=== PATIENT | female | born 1950 | race Caucasian/White ===

== ENCOUNTER 2017-06-12 18:51 | Emergency (ER) | payer MEDICARE, BC ==
--- NOTE | 2017-06-12 19:04 | EDM.PDOC ---
[id number] 4d CHEST PAINS, [id number] Time Seen by Provider: 06/12/17 19:19 Source of Information: Reports: Patient History Limitations: Reports: No Limitations - History of Present Illness INITIAL COMMENTS - FREE TEXT/NARRATIVE: c/o pain below both clavicles this am worse with deep breath 5/10 lessened some during day never completley gone, tonight 530 while fixing supper worse left chest up neck, continued pain with inspiration no SOB, no nausea or sweating. Hx SVT, controlled x 4 years. hypothyroid last level december, fairly stable, small increase in dose yearly. Onset: Today, Sudden Duration: Hour(s):, Getting Worse Location: Reports: Chest Quality: Reports: Sharp Severity: Moderate Worsens with: Reports: Breathing Associated Symptoms: Reports: Chest Pain Treatments SLAB GRINDER: Reports: Acetaminophen Left Chest Pain Score (Numeric/FACES): 7 - Related Data Allergies Allergy/AdvReac Type Severity Reaction Status Date / Time No Known Allergies Allergy Verified 06/12/17 19:15 Home Meds: Home Meds Aspirin 81 mg PO DAILY 06/12/17 [History] Digoxin 50 mcg PO DAILY 06/12/17 [History] Levothyroxine [Synthroid] 88 mcg PO DAILY 06/12/17 [History] Metoprolol Tartrate 25 mg PO DAILY 06/12/17 [History] Nicotine [Nicoderm CQ] 1 patch TOP DAILY 06/12/17 [History] Rosuvastatin [Crestor] 10 mg PO DAILY 06/12/17 [History] ED ROS GENERAL - Review of Systems Review Of Systems: See Below Constitutional: Reports: No Symptoms HEENT: Reports: No Symptoms Respiratory: Reports: Pleuritic Chest Pain Cardiovascular: Reports: Chest Pain. Denies: Edema, Lightheadedness, Orthopnea Endocrine: Reports: No Symptoms GI/Abdominal: Reports: No Symptoms : Reports: No Symptoms Musculoskeletal: Reports: No Symptoms Skin: Reports: No Symptoms Neurological: Reports: No Symptoms ED EXAM, GENERAL - Physical Exam Exam: See Below Exam Limited By: No Limitations General Appearance: Alert, Mild Distress. No: Anxious Eye Exam: Bilateral Eye: EOMI Ears: Normal External Exam, Normal TMs Nose: Normal Inspection Throat/Mouth: Normal Inspection, Normal Voice Neck: Normal Inspection, Full Range of Motion. No: Lymphadenopathy (L), Lymphadenopathy (R), Thyromegaly Respiratory/Chest: No Respiratory Distress, Lungs Clear, Normal Breath Sounds Cardiovascular: Normal Peripheral Pulses, Regular Rate, Rhythm, No Edema, No JVD GI/Abdominal: Normal Bowel Sounds, Soft, Non-Tender (Female) Exam: Normal External Exam Extremities: Normal Inspection, Normal Range of Motion Neurological: Alert, Oriented, Normal Cognition, Normal Gait, No Motor/Sensory Deficits Psychiatric: Normal Affect Skin Exam: Warm, Dry, Intact, Normal Color, No Rash Course - Vital Signs Last Recorded V/S: Last Vital Signs Temp 97.4 F 06/12/17 20:48 Pulse 68 06/12/17 20:48 Resp 17 06/12/17 20:48 BP 108/53 L 06/12/17 20:48 Pulse Ox 99 06/12/17 20:48 - Orders/Labs/Meds Labs: Laboratory Tests 06/12/17 06/12/17 06/12/17 Range/Units 19:03 19:03 19:03 WBC 10.7 H (5.0-10.0) 10^3/uL RBC 4.13 L (4.2-5.4) 10^6/uL Hgb 12.5 (12.0-16.0) g/dL Hct 37.6 (37.0-47.0) % MCV 91.0 (80-100) fL MCH 30.3 (27.0-34.0) pg MCHC 33.2 (33.0-35.0) g/dL Plt Count 272 (150-450) 10^3/uL Neut % (Auto) 69.7 (42.2-75.2) % Lymph % (Auto) 18.5 L (20.5-50.1) % [place] % (Auto) 10.4 H (2-8) % Eos % (Auto) 1.2 (1.0-3.0) % Baso % (Auto) 0.2 (0.0-1.0) % PT 9.5 (9.0-12.0) SEC INR 0.9 (0.9-1.2) D-Dimer, Quantitative (0-400) ng/mL Sodium 139 (135-145) mmol/L Potassium 4.1 (3.6-5.0) mmol/L Chloride 103 (101-111) mmol/L Carbon Dioxide 23.0 (21.0-31.0) mmol/L Anion Gap 17.1 BUN 17 (7-18) mg/dL Creatinine 0.8 (0.6-1.3) mg/dL Est Cr Clr Drug Dosing 60.54 mL/min Estimated GFR (MDRD) > 60 BUN/Creatinine Ratio 21.25 Glucose 115 H (74-105) mg/dL Calcium 9.3 (8.4-10.2) mg/dl Total Bilirubin 0.5 (0.2-1.0) mg/dL AST 21 (10-42) IU/L ALT 18 (10-60) IU/L Alkaline Phosphatase 76 (42-121) IU/L CK-MB (CK-2) (0.4-4.7) ng/mL Troponin I < 0.02 (0.00-0.02) ng/ml Total Protein 7.4 (6.7-8.2) g/dl Albumin 4.1 (3.2-5.5) g/dl Globulin 3.3 Albumin/Globulin Ratio 1.24 Amylase 43 (28-100) U/L Lipase 22 (22-51) U/L TSH, Ultra Sensitive (0.35-7.0) uIu/mL Urine Color (YELLOW) Urine Appearance (CLEAR) Urine pH (5.0-9.0) Ur Specific [place] (1.005-1.030) Urine Protein (NEGATIVE) Urine Glucose (UA) (NEGATIVE) Urine Ketones (NEGATIVE) Urine Occult Blood (NEGATIVE) Urine Nitrite (NEGATIVE) Urine Bilirubin (NEGATIVE) Urine Urobilinogen (0.2-1.0) mg/dL Ur Leukocyte Esterase (NEGATIVE) Urine RBC /HPF Urine WBC (0-5/HPF) /HPF Ur Epithelial Cells /HPF Urine Bacteria (0-FEW/HPF) /HPF Urine Mucus /LPF Digoxin (0-2.5) ng/ml 06/12/17 06/12/17 06/12/17 Range/Units 19:03 19:03 19:03 WBC (5.0-10.0) 10^3/uL RBC (4.2-5.4) 10^6/uL Hgb (12.0-16.0) g/dL Hct (37.0-47.0) % MCV (80-100) fL MCH (27.0-34.0) pg MCHC (33.0-35.0) g/dL Plt Count (150-450) 10^3/uL Neut % (Auto) (42.2-75.2) % Lymph % (Auto) (20.5-50.1) % [place] % (Auto) (2-8) % Eos % (Auto) (1.0-3.0) % Baso % (Auto) (0.0-1.0) % PT (9.0-12.0) SEC INR (0.9-1.2) D-Dimer, Quantitative 1170 H (0-400) ng/mL Sodium (135-145) mmol/L Potassium (3.6-5.0) mmol/L Chloride (101-111) mmol/L Carbon Dioxide (21.0-31.0) mmol/L Anion Gap BUN (7-18) mg/dL Creatinine (0.6-1.3) mg/dL Est Cr Clr Drug Dosing mL/min Estimated GFR (MDRD) BUN/Creatinine Ratio Glucose (74-105) mg/dL Calcium (8.4-10.2) mg/dl Total Bilirubin (0.2-1.0) mg/dL AST (10-42) IU/L ALT (10-60) IU/L Alkaline Phosphatase (42-121) IU/L CK-MB (CK-2) 1.00 (0.4-4.7) ng/mL Troponin I (0.00-0.02) ng/ml Total Protein (6.7-8.2) g/dl Albumin (3.2-5.5) g/dl Globulin Albumin/Globulin Ratio Amylase (28-100) U/L Lipase (22-51) U/L TSH, Ultra Sensitive (0.35-7.0) uIu/mL Urine Color (YELLOW) Urine Appearance (CLEAR) Urine pH (5.0-9.0) Ur Specific [place] (1.005-1.030) Urine Protein (NEGATIVE) Urine Glucose (UA) (NEGATIVE) Urine Ketones (NEGATIVE) Urine Occult Blood (NEGATIVE) Urine Nitrite (NEGATIVE) Urine Bilirubin (NEGATIVE) Urine Urobilinogen (0.2-1.0) mg/dL Ur Leukocyte Esterase (NEGATIVE) Urine RBC /HPF Urine WBC (0-5/HPF) /HPF Ur Epithelial Cells /HPF Urine Bacteria (0-FEW/HPF) /HPF Urine Mucus /LPF Digoxin 1.0 (0-2.5) ng/ml 06/12/17 06/12/17 Range/Units 19:03 19:52 WBC (5.0-10.0) 10^3/uL RBC (4.2-5.4) 10^6/uL Hgb (12.0-16.0) g/dL Hct (37.0-47.0) % MCV (80-100) fL MCH (27.0-34.0) pg MCHC (33.0-35.0) g/dL Plt Count (150-450) 10^3/uL Neut % (Auto) (42.2-75.2) % Lymph % (Auto) (20.5-50.1) % [place] % (Auto) (2-8) % Eos % (Auto) (1.0-3.0) % Baso % (Auto) (0.0-1.0) % PT (9.0-12.0) SEC INR (0.9-1.2) D-Dimer, Quantitative (0-400) ng/mL Sodium (135-145) mmol/L Potassium (3.6-5.0) mmol/L Chloride (101-111) mmol/L Carbon Dioxide (21.0-31.0) mmol/L Anion Gap BUN (7-18) mg/dL Creatinine (0.6-1.3) mg/dL Est Cr Clr Drug Dosing mL/min Estimated GFR (MDRD) BUN/Creatinine Ratio Glucose (74-105) mg/dL Calcium (8.4-10.2) mg/dl Total Bilirubin (0.2-1.0) mg/dL AST (10-42) IU/L ALT (10-60) IU/L Alkaline Phosphatase (42-121) IU/L CK-MB (CK-2) (0.4-4.7) ng/mL Troponin I (0.00-0.02) ng/ml Total Protein (6.7-8.2) g/dl Albumin (3.2-5.5) g/dl Globulin Albumin/Globulin Ratio Amylase (28-100) U/L Lipase (22-51) U/L TSH, Ultra Sensitive 1.24 (0.35-7.0) uIu/mL Urine Color Yellow (YELLOW) Urine Appearance Slightly cloudy (CLEAR) Urine pH 5.5 (5.0-9.0) Ur Specific [place] 1.010 (1.005-1.030) Urine Protein Negative (NEGATIVE) Urine Glucose (UA) Negative (NEGATIVE) Urine Ketones Negative (NEGATIVE) Urine Occult Blood Trace-lysed H (NEGATIVE) Urine Nitrite Negative (NEGATIVE) Urine Bilirubin Negative (NEGATIVE) Urine Urobilinogen 0.2 (0.2-1.0) mg/dL Ur Leukocyte Esterase Trace H (NEGATIVE) Urine RBC 0-5 /HPF Urine WBC 0-5 (0-5/HPF) /HPF Ur Epithelial Cells Few /HPF Urine Bacteria Few (0-FEW/HPF) /HPF Urine Mucus Rare /LPF Digoxin (0-2.5) ng/ml Meds: Medications Discontinued Medications Generic Name Dose Route Start Last Admin Trade Name Freq PRN Reason Stop Dose Admin Aspirin 324 mg 06/12/17 19:25 06/12/17 19:31 Aspirin PO 06/12/17 19:26 324 mg ONETIME ONE Administration Sodium Chloride 1,000 mls @ 999 mls/hr 06/12/17 20:45 06/12/17 20:34 Normal Saline IV 06/16/17 20:38 999 mls/hr ASDIRECTED SHIRA Administration Iopamidol 100 ml 06/12/17 19:57 06/12/17 20:20 Isovue-370 (76%) IVPUSH 06/12/17 19:58 65 ml ONETIME ONE Administration Nitroglycerin 0.4 mg 06/12/17 19:17 06/12/17 19:22 Nitrostat SL 06/12/17 19:18 0.4 mg ONETIME ONE Administration Nitroglycerin 0.4 mg 06/12/17 19:32 06/12/17 19:33 Nitrostat SL 06/12/17 19:33 0.4 mg ONETIME ONE Administration - Radiology Interpretation Free Text/Narrative:: Chest PE negative for PE, small left pleural effusion CXR atelectasis, small left pleural effusion - Re-Assessments/Exams Free Text/Narrative Re-Assessment/Exam: 06/12/17 19:38 pain 7 at presentation 5 at exam, decrease to 3 after one nitro less in neck and shoulder VS remain stable following nitro. Systolic BP 115. 1935 Complete relief of chest pain and pain with inspiration following Nitro 06/12/17 20:[address] Zia Burnette hospitalist, accepting of patient following Chest PE study and results for further evaluation by cardiology. No recommendation for initiating heparin at this time. 06/19/17 05:27 Departure - Departure Time of Disposition: 22:35 Disposition: DC/Tfer to Acute Hospital 02 Reason for Transfer *Q: Other Condition: Undetermined Clinical Impression: Nonspecific chest pain Referrals: PCP,None [Primary Care Provider] - Forms: ED Department Discharge
[2017-06-12] MEDS ORDERED: Nitroglycerin 0.4 MG Tab.SL SL ONE ×2 (19:17→19:32)
[2017-06-12] MEDS ORDERED: Aspirin 81 MG Tab.Chew PO ONE (19:25)
[2017-06-12 19:31] LABS: CHLORIDE,CL 103 mmol/L (101-111); SODIUM,NA 139 mmol/L (135-145)
[2017-06-12] MEDS ORDERED: Iopamidol 755 Mg/ML 100 ML Bottle IVPUSH ONE (19:57)
[2017-06-12] MEDS ORDERED: Sodium Chloride 0.9% 1,000 ML IV SCH (20:45)
[2017-06-12 20:48] VITALS: BP 108/53
--- NOTE | 2017-06-18 19:50 | EKG ---
06/12/2017 - CHRISSIE MACHUCA - TIME: 6:54 p.m. EKG per my reading shows sinus rhythm with no acute ST changes. [facility] /[id number]
--- NOTE | 2017-06-19 11:00 | EKG ---
06/12/2017- CHRISSIE MACHUCA - EKG per my reading shows sinus rhythm with a rate of 64. This is from 06/12/2017 on 2100 hours. [facility] /[id number]
== END 2017-06-12 22:35 ==
LOC: DL.ED 18:51
DX: R07.9 Chest pain, unspecified (principal); Z79.899 Other long term (current) drug therapy; Z79.82 Long term (current) use of aspirin
CPT/HCPCS: 36415; 71010; 71260; 80053; 80162; 81001; 82150; 82553; 83690; 84443; 84484; 85025; 85379; 85610; 93005; 93010; 96365; 99285; A9270; J7030; Q9967; 99283

== ENCOUNTER 2017-11-20 14:09 | Emergency (ER) | payer MEDICARE, BC ==
[2017-11-20 14:32] VITALS: BP 141/72
--- NOTE | 2017-11-20 14:32 | EDM.PDOC ---
ED HPI GENERAL MEDICAL PROBLEM - General Chief Complaint: Respiratory Problem Stated Complaint: PAINS WHEN SHE BREATHS, [id number] Time Seen by Provider: 11/20/17 14:32 Source of Information: Reports: Patient, RN, RN Notes Reviewed History Limitations: Reports: No Limitations - History of Present Illness INITIAL COMMENTS - FREE TEXT/NARRATIVE: Patient sent from clinic by Kat Isabel due to shortness of breath and pleuritic chest pain worse today but present since June 2017. She has had fever since November 18. See by bottle packing machine cleaner last week but found nothing. Had cardiac work up in June 2017 which was negative. Had a cardiac cath in 2007. Today found to have elevated D-dimer greater than 5000 in clinic. Patient reports recurrent episodes of shortness of breath cough and chest pain that last about 5 days. She also c/o fevers for the last several days. These episodes used to occur less than once a month but now happen back to back. Location: Reports: Chest Quality: Reports: Ache, Other (shortness of breath.) Severity: Severe Improves with: Reports: None Worsens with: Reports: None Associated Symptoms: Reports: No Other Symptoms Chest Pain Score (Numeric/FACES): 6 - Related Data Allergies Allergy/AdvReac Type Severity Reaction Status Date / Time atorvastatin [From Lipitor] Allergy Abdominal Verified 11/20/17 14:33 Pain Home Meds: Home Meds Aspirin 81 mg PO DAILY 06/12/17 [History] Digoxin 25 mcg PO DAILY 06/12/17 [History] Levothyroxine [Synthroid] 0.1 mcg PO DAILY 06/12/17 [History] Metoprolol Tartrate 25 mg PO DAILY 06/12/17 [History] Rosuvastatin [Crestor] 10 mg PO DAILY 06/12/17 [History] Calcium Carbonate/Vitamin D3 [[place] 500+D] 1 tab PO DAILY 11/20/17 [History] Past Medical History HEENT History: Reports: Impaired Vision Cardiovascular History: Reports: CAD, High Cholesterol, Other (See Below) Other Cardiovascular History: SVT Respiratory History: Reports: COPD 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: Reports: Endocrine/Metabolic History: Reports: Hypothyroidism - Past Surgical History Cardiovascular Surgical History: Reports: Other (See Below) (angiogram) Social & Family History - Family History Cardiac: Reports: OR Other Cardiac Family History: mom had a heart attack - Tobacco Use Smoking Status *Q: Former Smoker Years of Tobacco use: 40 Packs/Tins Daily: 0.5 Used Tobacco, but Quit: Yes Month Tobacco Last Used: April - Caffeine Use Caffeine Use: Reports: Coffee Other Caffeine Use: 4 cups/day - Recreational Drug Use Recreational Drug Use: No - Living Situation & Occupation Living situation: Reports: , with Spouse Occupation: Retired ED ROS GENERAL - Review of Systems Review Of Systems: ROS reveals no pertinent complaints other than HPI. ED EXAM, GENERAL - Physical Exam Exam: See Below Exam Limited By: No Limitations General Appearance: Alert, WD/WN, No Apparent Distress Eye Exam: Bilateral Eye: Normal Inspection Ears: Normal External Exam, Hearing Grossly Normal Nose: Normal Inspection, Normal Mucosa, No Blood Throat/Mouth: Normal Inspection, Normal Lips, Normal Teeth, Normal Gums, Normal Oropharynx, Normal Voice, No Airway Compromise Head: Atraumatic, Normocephalic Neck: Normal Inspection, Supple, Non-Tender, Full Range of Motion Respiratory/Chest: No Respiratory Distress, No Accessory Muscle Use, Decreased Breath Sounds (in bilateral bases. ), Crackles, Rales Cardiovascular: Regular Rate, Rhythm, No Edema, Tachycardia GI/Abdominal: Normal Bowel Sounds, Soft, Non-Tender, No Distention, No Abnormal Bruit (Female) Exam: Deferred Rectal (Female) Exam: Deferred Back Exam: Normal Inspection, Full Range of Motion, NT Extremities: Normal Inspection, Normal Range of Motion, Non-Tender, Normal Capillary Refill, No Pedal Edema Neurological: Alert, Oriented, CN II-XII Intact, Normal Cognition, Normal Gait, No Motor/Sensory Deficits Psychiatric: Normal Mood Skin Exam: Warm, Dry, Intact, Normal Color, No Rash EKG INTERPRETATION EKG Date: 11/20/17 Time: 15:52 Rhythm: Other (sinus tachycardia) Rate (Beats/Min): 110 Orient: Normal P-Wave: Present QRS: Other (Small inferior Q waves.) ST-T: Other (T wave inversion in lead 3. T wave depression in lead 3 and V4. T wave flattening on V1 and V2.) QT: Normal Comparison: NA - No Prior EKG EKG Interpretation Comments: Possible anterior lateral ischemic changes. Course - Vital Signs Last Recorded V/S: Last Vital Signs Temp 37.3 C 11/20/17 14:25 Pulse 124 H 11/20/17 14:25 Resp 16 11/20/17 14:25 BP 141/72 H 11/20/17 14:25 Pulse Ox 95 11/20/17 14:25 - Orders/Labs/Meds Orders: Active Orders 24 hr Category Date Time Status EKG 12 Lead [EKG Documentation Completion] [] STAT Care 11/20/17 15:11 Active Peripheral IV Care [] . DIRECTED Care 11/20/17 14:54 Active CULTURE BLOOD [BC] Stat Lab 11/20/17 15:35 Received CULTURE BLOOD [BC] Stat Lab 11/20/17 15:40 Received Levofloxacin/Dextrose 5%-Water [Levaquin in D5W 750 MG/ Med 11/20/17 16:51 Active 150 ML] 750 mg Premix Bag 1 bag IV ONETIME Sodium Chloride 0.9% [Saline Flush] Med 11/20/17 14:54 Active 10 ml FLUSH ASDIRECTED PRN Blood Culture x2 Reflex Set [OM.PC] Stat Oth 11/20/17 15:12 Ordered Peripheral IV Insertion Adult [OM.PC] Stat Oth 11/20/17 14:54 Ordered Medication Orders Levofloxacin/Dextrose 750 mg/ (Premix) 150 mls @ 100 mls/hr IV ONETIME ONE Stop: 11/20/17 18:20 Last Admin: 11/20/17 16:55 Dose: 100 mls/hr Sodium Chloride (Saline Flush) 10 ml FLUSH ASDIRECTED PRN PRN Reason: Keep Vein Open Last Admin: 11/20/17 16:56 Dose: 10 ml Admin: 11/20/17 15:52 Dose: 10 ml Labs: Laboratory Tests 11/20/17 11/20/17 11/20/17 Range/Units 15:35 15:35 15:35 WBC 17.1 H (5.0-10.0) 10^3/uL RBC 3.77 L (4.2-5.4) 10^6/uL Hgb 10.9 L D (12.0-16.0) g/dL Hct 33.9 L (37.0-47.0) % MCV 89.9 (80-100) fL MCH 28.9 (27.0-34.0) pg MCHC 32.2 L (33.0-35.0) g/dL Plt Count 402 D (150-450) 10^3/uL Neut % (Auto) 82.1 H (42.2-75.2) % Lymph % (Auto) 8.5 L (20.5-50.1) % [place] % (Auto) 9.2 H (2-8) % Eos % (Auto) 0.1 L (1.0-3.0) % Baso % (Auto) 0.1 (0.0-1.0) % PT 10.6 (9.0-12.0) SEC INR 1.1 (0.9-1.2) APTT 29.7 (22.0-34.0) SEC Sodium 133 L (135-145) mmol/L Potassium 4.0 (3.6-5.0) mmol/L Chloride 98 L (101-111) mmol/L Carbon Dioxide 26.0 (21.0-31.0) mmol/L Anion Gap 13.0 BUN 11 (7-18) mg/dL Creatinine 0.8 (0.6-1.3) mg/dL Est Cr Clr Drug Dosing 55.45 mL/min Estimated GFR (MDRD) > 60 BUN/Creatinine Ratio 13.75 Glucose 114 H (74-105) mg/dL Lactic Acid (0.5-2.2) mmol/L Calcium 8.4 (8.4-10.2) mg/dl Total Bilirubin 0.1 L (0.2-1.0) mg/dL AST 19 (10-42) IU/L ALT 18 (10-60) IU/L Alkaline Phosphatase 86 (42-121) IU/L Troponin I < 0.02 (0.00-0.02) ng/ml B-Natriuretic Peptide (0-100) pg/ml Total Protein 7.8 (6.7-8.2) g/dl Albumin 3.3 (3.2-5.5) g/dl Globulin 4.5 Albumin/Globulin Ratio 0.73 Urine Color (YELLOW) Urine Appearance (CLEAR) Urine pH (5.0-9.0) Ur Specific [place] (1.005-1.030) Urine Protein (NEGATIVE) Urine Glucose (UA) (NEGATIVE) Urine Ketones (NEGATIVE) Urine Occult Blood (NEGATIVE) Urine Nitrite (NEGATIVE) Urine Bilirubin (NEGATIVE) Urine Urobilinogen (0.2-1.0) mg/dL Ur Leukocyte Esterase (NEGATIVE) Urine RBC /HPF Urine WBC (0-5/HPF) /HPF Ur Epithelial Cells /HPF Urine Bacteria (0-FEW/HPF) /HPF Digoxin (0-2.5) ng/ml 11/20/17 11/20/17 11/20/17 Range/Units 15:35 15:35 15:35 WBC (5.0-10.0) 10^3/uL RBC (4.2-5.4) 10^6/uL Hgb (12.0-16.0) g/dL Hct (37.0-47.0) % MCV (80-100) fL MCH (27.0-34.0) pg MCHC (33.0-35.0) g/dL Plt Count (150-450) 10^3/uL Neut % (Auto) (42.2-75.2) % Lymph % (Auto) (20.5-50.1) % [place] % (Auto) (2-8) % Eos % (Auto) (1.0-3.0) % Baso % (Auto) (0.0-1.0) % PT (9.0-12.0) SEC INR (0.9-1.2) APTT (22.0-34.0) SEC Sodium (135-145) mmol/L Potassium (3.6-5.0) mmol/L Chloride (101-111) mmol/L Carbon Dioxide (21.0-31.0) mmol/L Anion Gap BUN (7-18) mg/dL Creatinine (0.6-1.3) mg/dL Est Cr Clr Drug Dosing mL/min Estimated GFR (MDRD) BUN/Creatinine Ratio Glucose (74-105) mg/dL Lactic Acid 1.1 (0.5-2.2) mmol/L Calcium (8.4-10.2) mg/dl Total Bilirubin (0.2-1.0) mg/dL AST (10-42) IU/L ALT (10-60) IU/L Alkaline Phosphatase (42-121) IU/L Troponin I (0.00-0.02) ng/ml B-Natriuretic Peptide 260 H (0-100) pg/ml Total Protein (6.7-8.2) g/dl Albumin (3.2-5.5) g/dl Globulin Albumin/Globulin Ratio Urine Color (YELLOW) Urine Appearance (CLEAR) Urine pH (5.0-9.0) Ur Specific [place] (1.005-1.030) Urine Protein (NEGATIVE) Urine Glucose (UA) (NEGATIVE) Urine Ketones (NEGATIVE) Urine Occult Blood (NEGATIVE) Urine Nitrite (NEGATIVE) Urine Bilirubin (NEGATIVE) Urine Urobilinogen (0.2-1.0) mg/dL Ur Leukocyte Esterase (NEGATIVE) Urine RBC /HPF Urine WBC (0-5/HPF) /HPF Ur Epithelial Cells /HPF Urine Bacteria (0-FEW/HPF) /HPF Digoxin 1.3 (0-2.5) ng/ml 11/20/17 Range/Units 15:50 WBC (5.0-10.0) 10^3/uL RBC (4.2-5.4) 10^6/uL Hgb (12.0-16.0) g/dL Hct (37.0-47.0) % MCV (80-100) fL MCH (27.0-34.0) pg MCHC (33.0-35.0) g/dL Plt Count (150-450) 10^3/uL Neut % (Auto) (42.2-75.2) % Lymph % (Auto) (20.5-50.1) % [place] % (Auto) (2-8) % Eos % (Auto) (1.0-3.0) % Baso % (Auto) (0.0-1.0) % PT (9.0-12.0) SEC INR (0.9-1.2) APTT (22.0-34.0) SEC Sodium (135-145) mmol/L Potassium (3.6-5.0) mmol/L Chloride (101-111) mmol/L Carbon Dioxide (21.0-31.0) mmol/L Anion Gap BUN (7-18) mg/dL Creatinine (0.6-1.3) mg/dL Est Cr Clr Drug Dosing mL/min Estimated GFR (MDRD) BUN/Creatinine Ratio Glucose (74-105) mg/dL Lactic Acid (0.5-2.2) mmol/L Calcium (8.4-10.2) mg/dl Total Bilirubin (0.2-1.0) mg/dL AST (10-42) IU/L ALT (10-60) IU/L Alkaline Phosphatase (42-121) IU/L Troponin I (0.00-0.02) ng/ml B-Natriuretic Peptide (0-100) pg/ml Total Protein (6.7-8.2) g/dl Albumin (3.2-5.5) g/dl Globulin Albumin/Globulin Ratio Urine Color Yellow (YELLOW) Urine Appearance Slightly cloudy (CLEAR) Urine pH 8.0 (5.0-9.0) Ur Specific [place] 1.015 (1.005-1.030) Urine Protein 100 H (NEGATIVE) Urine Glucose (UA) Negative (NEGATIVE) Urine Ketones Negative (NEGATIVE) Urine Occult Blood Trace-intact H (NEGATIVE) Urine Nitrite Negative (NEGATIVE) Urine Bilirubin Negative (NEGATIVE) Urine Urobilinogen 1.0 (0.2-1.0) mg/dL Ur Leukocyte Esterase Negative (NEGATIVE) Urine RBC 5-10 H /HPF Urine WBC 0-5 (0-5/HPF) /HPF Ur Epithelial Cells Few /HPF Urine Bacteria Rare (0-FEW/HPF) /HPF Digoxin (0-2.5) ng/ml Meds: Medications Generic Name Dose Route Start Last Admin Trade Name Freq PRN Reason Stop Dose Admin Levofloxacin/Dextrose 750 mg/ 150 mls @ 100 mls/hr 11/20/17 16:51 11/20/17 16 :55 Premix IV 11/20/17 18:20 100 mls/hr ONETIME ONE Administration Sodium Chloride 10 ml 11/20/17 14:54 11/20/17 16:56 Saline Flush FLUSH 10 ml ASDIRECTED PRN Administration Keep Vein Open Discontinued Medications Generic Name Dose Route Start Last Admin Trade Name Freq PRN Reason Stop Dose Admin Iopamidol 100 ml 11/20/17 14:52 11/20/17 15:31 Isovue-370 (76%) IVPUSH 11/20/17 14:53 64 ml ONETIME ONE Administration - Radiology Interpretation Free Text/Narrative:: CT chest: No sign of intraluminal filling defect or thrombus pulmonary artery circulation. No peripheral, pleural-based wedge shaped infarcts. Dependent bibasilar pleural effusion (left greater than right). Underlying left lower lobe atelectasis. Large heart with small pericardial effusion. Cephalization of vascular flow but no current signs of alveolar edema. No lung mass or significant hilar/mediastinal lymphadenopathy. No focal lobar pneumonia, other atelectasis or lobar collapse. Normal caliber thoracic aorta without sign of aneurysm. Kyphotic and hypertrophic spondylosis osteopenic spine. Large liver and spleen. Conclusion was cardiomegaly and bibasilar pleural effusion. (small) pericardial effusion). No current evidence of pulmonary thrombus, embolism or infarct. Hepatosplenomegaly. See Rad report. Departure - Departure Time of Disposition: 16:52 Disposition: DC/Tfer to Acute Hospital 02 Condition: Serious Clinical Impression: Bilateral pleural effusion Dyspnea Qualifiers: Dyspnea type: shortness of breath Qualified Code(s): R06.02 - Shortness of breath; R06.00 - Dyspnea, unspecified; R06.01 - Orthopnea Pneumonia Qualifiers: Pneumonia type: due to unspecified organism Laterality: left Lung location: lower lobe of lung Qualified Code(s): J18.1 - Lobar pneumonia, unspecified organism - Discharge Information Referrals: Kat Isabel PA [Primary Care Provider] - Forms: ED Department Discharge, Interfacility Transfer EMTALA - My Orders Last 24 Hours: My Active Orders 11/20/17 14:54 Peripheral IV Care [RC] . DIRECTED Sodium Chloride 0.9% [Saline Flush] 10 ml FLUSH ASDIRECTED PRN Peripheral IV Insertion Adult [OM.PC] Stat 11/20/17 15:11 EKG 12 Lead [EKG Documentation Completion] [RC] STAT 11/20/17 15:12 Blood Culture x2 Reflex Set [OM.PC] Stat 11/20/17 15:35 CULTURE BLOOD [BC] Stat 11/20/17 15:40 CULTURE BLOOD [BC] Stat 11/20/17 16:51 Levofloxacin/Dextrose 5%-Water [Levaquin in D5W 750 MG/150 ML] 750 mg Premix Bag 1 bag IV ONETIME - Assessment/Plan Last 24 Hours: My Active Orders 11/20/17 14:54 Peripheral IV Care [RC] . DIRECTED Sodium Chloride 0.9% [Saline Flush] 10 ml FLUSH ASDIRECTED PRN Peripheral IV Insertion Adult [OM.PC] Stat 11/20/17 15:11 EKG 12 Lead [EKG Documentation Completion] [RC] STAT 11/20/17 15:12 Blood Culture x2 Reflex Set [OM.PC] Stat 11/20/17 15:35 CULTURE BLOOD [BC] Stat 11/20/17 15:40 CULTURE BLOOD [BC] Stat 11/20/17 16:51 Levofloxacin/Dextrose 5%-Water [Levaquin in D5W 750 MG/150 ML] 750 mg Premix Bag 1 bag IV ONETIME
[2017-11-20] MEDS ORDERED: Iopamidol 755 Mg/ML 100 ML Bottle IVPUSH ONE (14:52)
--- NOTE | 2017-11-20 15:45 | CT ---
Clinical history: 67-year-old 166 pound female former smoker cough, dyspnea and chest pain (serum D d cristela greater than 5000). Rule out pulmonary embolism/infarct or other abnormality this patient with r adiographic evidence bibasilar pleural effusions. Scan technique: Volume acquisition of data from the chest (the thorax, lungs and mediastinum) obtaine d during the intravenous administration 64 mL nonionic Isovue 370 contrast via injector while patient was lying supine on the Siemens multi slice scanner [place], [place]. All data archived in the PACS system for storage, reformatting axial/sagittal/coronal planes and [place] dy (lung/mediastinal windows). Interpretation: 1. No sign of intraluminal filling defect or thrombus pulmonary artery circulation. No peripheral, pl eural-based, wedge shaped infarcts. 2. Dependent bibasilar pleural effusions (left greater than right). 3. Underlying left lower lobe atelectasis. 4. Large heart with small pericardial effusion. Cephalization of vascular flow but no current signs o f alveolar edema. 5. No lung mass or significant hilar/mediastinal lymphadenopathy. 6. No focal lobar pneumonia, other atelectasis or lobar collapse. 7. Normal caliber thoracic aorta without sign of aneurysm. 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 8. Large liver and spleen. CONCLUSION: Cardiomegaly and bibasilar pleural effusions. (Small pericardial effusion). No current evidence of pulmonary thrombus, embolism or infarct. Hepatosplenomegaly.
[2017-11-20] MEDS: Sodium Chloride 0.9% 10 ML Syringe FLUSH PRN ×2 (15:52→16:56)
[2017-11-20 16:10] LABS: CHLORIDE,CL 98 mmol/L (101-111); SODIUM,NA 133 mmol/L (135-145)
[2017-11-20] MEDS ORDERED: Levofloxacin/Dextrose 5%-Water 750 MG in Premix Bag 1 BAG IV ONE (16:51)
--- NOTE | 2017-11-21 15:04 | EKG ---
11/20/2017 - CHRISSIE MACHUCA M - FINDINGS: This 12-lead EKG shows a sinus tachycardia with a ventricular rate of 110. There are nonspecific ST changes in the anterior lateral leads, but no acute ST-T wave changes. [facility] /[id number]
== END 2017-11-20 17:35 ==
LOC: DL.ED 14:09
DX: J18.9 Pneumonia, unspecified organism (principal); J90 Pleural effusion, not elsewhere classified; I25.10 Atherosclerotic heart disease of native coronary artery without angina pectoris; E78.00 Pure hypercholesterolemia, unspecified; E03.9 Hypothyroidism, unspecified; Z87.891 Personal history of nicotine dependence; Z79.899 Other long term (current) drug therapy; Z79.82 Long term (current) use of aspirin; Z88.8 Allergy status to other drugs, medicaments and biological substances
CPT/HCPCS: 36415; 71260; 80053; 80162; 81001; 83605; 83880; 84484; 85025; 85610; 85730; 87040; 87804; 93005; 93010; 96365; 99285; J1956; J7050; Q9967

== ENCOUNTER 2024-11-18 08:57 | Day surgery (SDC) | payer MEDICARE, BC ==
[2024-11-18] MEDS ORDERED: Midazolam 1 MG/ML 2 ML SDV IV ONE (08:58)
[2024-11-18] MEDS ORDERED: Sodium Chloride 0.9% 10 ML Syringe IV ONE (08:58)
[2024-11-18] MEDS ORDERED: Dexamethasone 4 MG/ML SDV IV ONE (08:58)
[2024-11-18] MEDS ORDERED: Ondansetron 4 MG/2 ML SDV IVPUSH PRN (09:00)
[2024-11-18] MEDS ORDERED: Sodium Chloride 0.9% 10 ML Syringe FLUSH PRN (09:00)
[2024-11-18] MEDS ORDERED: Acetaminophen/Codeine 300-30 MG Tab PO PRN (09:00)
[2024-11-18] MEDS ORDERED: Acetaminophen 325 MG Tab PO PRN (09:00)
[2024-11-18] MEDS ORDERED: Timolol Maleate 0.5% Ophth Soln 5 ML Bottle EYELF ONE (09:00)
[2024-11-18] MEDS ORDERED: Cataract Ophth Solution EYELF ONE (09:00)
[2024-11-18] MEDS ORDERED: Phenylephrine 10% Ophth Soln 5 ML Bot EYELF ONE (09:00)
[2024-11-18] MEDS ORDERED: Proparacaine 0.5% Ophth Soln 15 ML Bottle EYELF ONE (09:00)
[2024-11-18] MEDS ORDERED: Tropicamide 1% Ophth Soln 15 ML Bottle EYELF ONE (09:00)
[2024-11-18] MEDS ORDERED: Povidone-Iodine 5% Sterile Ophth Soln 30 ML Bottle EYELF ONE (09:00)
[2024-11-18] MEDS ORDERED: Moxifloxacin 0.5% Ophth Soln 3 ML Bottle EYELF ONE (09:00)
[2024-11-18] MEDS: Apraclonidine 0.5% Ophth Soln 5 ML Bot EYELF ONE (09:54)
[2024-11-18] MEDS: Proparacaine 0.5% Ophth Soln 15 ML Bottle EYELF ONE (09:54)
[2024-11-18] MEDS: Dexamethasone/Neomycin/Polymyxin B Ophth Oint 3.5 GM Tube EYELF ONE (09:54)
[2024-11-18] MEDS: Povidone-Iodine 5% Sterile Ophth Soln 30 ML Bottle EYELF ONE (09:54)
[2024-11-18] MEDS: Diclofenac Sodium 0.1% Ophth Soln 5 ML Bottle EYELF ONE (09:54)
[2024-11-18] MEDS: VANCOmycin 500 MG SDV EYELF ONE (10:04)
[2024-11-18] MEDS: Lidocaine 1% 30 ML SDV ONE (10:04)
[2024-11-18 10:35] VITALS: BP 114/45; PULSE 68
== END 2024-11-18 10:37 | disposition home or self-care (01) ==
LOC: DL.SDS 08:57
PROVIDERS: ATTEND Ophthalmology
DX: H25.812 Combined forms of age-related cataract, left eye (principal); J44.9 Chronic obstructive pulmonary disease, unspecified; I25.10 Atherosclerotic heart disease of native coronary artery without angina pectoris; E03.9 Hypothyroidism, unspecified; E78.5 Hyperlipidemia, unspecified; Z87.891 Personal history of nicotine dependence; Z79.890 Hormone replacement therapy; Z79.899 Other long term (current) drug therapy
CPT/HCPCS: 66984; A9270; J1100; J2250; J3370; J3490

== ENCOUNTER 2024-12-02 08:53 | Day surgery (SDC) | payer MEDICARE, BC ==
[2024-12-02] MEDS ORDERED: Midazolam 1 MG/ML 2 ML SDV IV ONE (08:54)
[2024-12-02] MEDS ORDERED: Dexamethasone 4 MG/ML SDV IV ONE (08:54)
[2024-12-02] MEDS ORDERED: Sodium Chloride 0.9% 10 ML Syringe IV ONE (08:54)
[2024-12-02] MEDS ORDERED: Acetaminophen/Codeine 300-30 MG Tab PO PRN (09:00)
[2024-12-02] MEDS ORDERED: Acetaminophen 325 MG Tab PO PRN (09:00)
[2024-12-02] MEDS ORDERED: Ondansetron 4 MG/2 ML SDV IVPUSH PRN (09:00)
[2024-12-02] MEDS: Sodium Chloride 0.9% 10 ML Syringe FLUSH PRN (09:23)
[2024-12-02] MEDS: Proparacaine 0.5% Ophth Soln 15 ML Bottle EYERT ONE ×2 (09:31→10:00)
[2024-12-02] MEDS: Povidone-Iodine 5% Sterile Ophth Soln 30 ML Bottle EYERT ONE ×2 (09:32→10:01)
[2024-12-02] MEDS: Moxifloxacin 0.5% Ophth Soln 3 ML Bottle EYERT ONE (09:32)
[2024-12-02] MEDS: Tropicamide 1% Ophth Soln 15 ML Bottle EYERT ONE (09:33)
[2024-12-02] MEDS: Phenylephrine 10% Ophth Soln 5 ML Bot EYERT ONE (09:34)
[2024-12-02] MEDS: Timolol Maleate 0.5% Ophth Soln 5 ML Bottle EYERT ONE (09:34)
[2024-12-02] MEDS: Cataract Ophth Solution EYERT ONE (09:35)
[2024-12-02] MEDS: Lidocaine 1% 30 ML SDV ONE (10:09)
[2024-12-02] MEDS: VANCOmycin 500 MG SDV EYERT ONE (10:09)
[2024-12-02] MEDS: Apraclonidine 0.5% Ophth Soln 5 ML Bot EYERT ONE (10:15)
[2024-12-02] MEDS: Diclofenac Sodium 0.1% Ophth Soln 5 ML Bottle EYERT ONE (10:16)
[2024-12-02] MEDS: Dexamethasone/Neomycin/Polymyxin B Ophth Oint 3.5 GM Tube EYERT ONE (10:16)
[2024-12-02 10:54] VITALS: BP 102/50; PULSE 61
== END 2024-12-02 11:14 | disposition home or self-care (01) ==
LOC: DL.SDS 08:53
PROVIDERS: ATTEND Ophthalmology
DX: H25.811 Combined forms of age-related cataract, right eye (principal); I25.10 Atherosclerotic heart disease of native coronary artery without angina pectoris; E03.9 Hypothyroidism, unspecified; Z88.8 Allergy status to other drugs, medicaments and biological substances; Z87.891 Personal history of nicotine dependence; Z79.899 Other long term (current) drug therapy; Z79.890 Hormone replacement therapy
CPT/HCPCS: A9270-GY; J1100; J2250; J3370; J3490